=== PATIENT | female | born 1960 | race African-American/Black ===

== ENCOUNTER 2022-01-03 14:23 | Inpatient (IN) | payer MEDICARE ==
[~2022-01-03] VITALS: Ht 165.1 cm; Wt 79.4 kg
[2022-01-03 17:31] LABS: BASOPHILS % 0.1 % (0.0-2.0); EOSINOPHILS % 0.2 % (0.0-5.0); HEMATOCRIT. 32.7 % (36.0-48.0); HEMOGLOBIN. 10.6 g/dL (12.0-16.0); MEAN CORPUSCULAR HEMOGLOBIN 27.9 pg (28.0-32.0); MEAN CORPUSCULAR VOLUME 85.9 fL (81.0-99.0); MEAN PLATELET VOLUME 8.6 fl (7.4-10.4); MONOCYTES % 9.4 % (2.0-8.0); NEUTROPHILS % 80.3 % (40.0-76.0); PLATELET 215 x1000/uL (130-400); RED CELL DISTRIBUTION WIDTH 16.8 % (11.6-14.6)
[2022-01-03 17:34] LABS: CHLORIDE 98 mEq/L (98-107)
[2022-01-03 17:38] LABS: INR 1.1; PROTHROMBIN TIME 11.5 sec (9.6-11.0)
[2022-01-03] MEDS ORDERED: ACETAMINOPHEN 650MG SUPP PR PRN ×2 (23:45)
[2022-01-03] MEDS ORDERED: CLONIDINE 0.1MG TABLET PO PRN (23:45)
[2022-01-03] MEDS ORDERED: ONDANSETRON HCL 4MG/2ML INJ IV PRN (23:45)
[2022-01-03] MEDS ORDERED: IPRATROPIUM/ALBUTEROL 0.5-3(2.5)MG/3ML NEB HHN PRN (23:45)
[2022-01-03] MEDS ORDERED: DOCUSATE SODIUM 100MG CAPSULE PO PRN (23:45)
[2022-01-03] MEDS ORDERED: MORPHINE SULFATE 2 MG/ML CPJ (NOT FOR IM USE) IV PRN (23:45)
[2022-01-03] MEDS ORDERED: GUAIFENESIN 200MG/10ML SUGAR FREE UDC PO PRN (23:45)
[2022-01-03] MEDS ORDERED: ACETAMINOPHEN 325MG TABLET PO PRN (23:45)
[2022-01-03] MEDS ORDERED: MAGNESIUM/ALUMINUM HYDROXIDE/SIMETHICONE 30ML UDC PO PRN (23:45)
[2022-01-04] MEDS ORDERED: ASPIRIN 325MG TABLET PO ONE (00:15)
[2022-01-04 08:30] VITALS: BP 154/84
[2022-01-04] MEDS: ASPIRIN 81MG EC TABLET PO SCH (09:05)
[2022-01-04 09:44] LABS: BASOPHILS % 0.6 % (0.0-2.0); EOSINOPHILS % 3.3 % (0.0-5.0); HEMOGLOBIN. 9.6 g/dL (12.0-16.0); LYMPHOCYTES % 23.6 % (20.0-50.0); MEAN CORPUSCULAR HEMOGLOBIN 27.7 pg (28.0-32.0); MEAN CORPUSCULAR VOLUME 86.7 fL (81.0-99.0); MONOCYTES % 7.7 % (2.0-8.0); NEUTROPHILS % 64.8 % (40.0-76.0); PLATELET 209 x1000/uL (130-400); RED BLOOD CELL COUNT 3.46 mill/uL (4.2-5.4); RED CELL DISTRIBUTION WIDTH 16.9 % (11.6-14.6)
[2022-01-04 09:56] LABS: CHLORIDE 100 mEq/L (98-107)
[2022-01-04 10:09] LABS: CREATINE KINASE 297 IU/L (26-192); HDL CHOLESTEROL 92 mg/dL (40-59); LDL CHOLESTEROL 54 mg/dL (5-100)
[2022-01-04] MEDS ORDERED: SEVE800T8 MT (11:39)
[2022-01-04] MEDS ORDERED: AMLO5TAB88 PO (11:47)
[2022-01-04] MEDS ORDERED: B,C/1TAB PO (11:48)
[2022-01-04 12:00] VITALS: BP 156/59
[2022-01-04 12:34] VITALS: BP 154/84
[2022-01-04] MEDS ORDERED: *PATIENT'S OWN MEDICATION STORAGE XX SCH (12:45)
[2022-01-04 14:41] LABS: HEPATITIS B SURFACE ANTIGEN NEGATIVE
[2022-01-04 16:00] VITALS: BP 154/79
[2022-01-04 18:52] LABS: CLARITY URINE CLEAR (CLEAR); COLOR URINE YELLOW (YELLOW); KETONES URINE NEGATIVE (NEGATIVE); LEUKOCYTE ESTERASE URINE TRACE (NEGATIVE); NITRITE URINE NEGATIVE (NEGATIVE); OCCULT BLOOD URINE NEGATIVE (NEGATIVE); PH URINE >=9.0 (4.5-8.0); PROTEIN URINE 1+ (NEGATIVE); SPECIFIC GRAVITY URINE 1.008 (1.005-1.030); UROBILINOGEN URINE 0.2 E.U./dL (0.2-1.0)
[2022-01-04 19:03] LABS: *AMPHETAMINES SCREEN URINE NEGATIVE (NEGATIVE); *BARBITURATES SCREEN URINE NEGATIVE (NEGATIVE); *BENZODIAZEPINES SCREEN URINE NEGATIVE (NEGATIVE); *COCAINE SCREEN URINE NEGATIVE (NEGATIVE); CANNABINOID URINE SCREEN NEGATIVE (NEGATIVE); METHADONE URINE SCREEN NEGATIVE (NEGATIVE); OPIATES URINE SCREEN NEGATIVE (NEGATIVE); PHENCYCLIDINE URINE SCREEN NEGATIVE (NEGATIVE)
[2022-01-04 20:00] VITALS: BP_SYST 143; BP_SYST 150; BP_DIAS 69; BP_DIAS 80
[2022-01-05] VITALS (7 sets, daily range): BP systolic 111–155; BP diastolic 43–90
[2022-01-05 06:55] LABS: BASOPHILS % 0.5 % (0.0-2.0); EOSINOPHILS % 4.8 % (0.0-5.0); HEMATOCRIT. 28.3 % (36.0-48.0); HEMOGLOBIN. 9.2 g/dL (12.0-16.0); LYMPHOCYTES % 30.6 % (20.0-50.0); MEAN CORPUSCULAR HEMOGLOBIN 27.9 pg (28.0-32.0); MEAN CORPUSCULAR VOLUME 85.8 fL (81.0-99.0); MEAN PLATELET VOLUME 9.7 fl (7.4-10.4); MONOCYTES % 11.3 % (2.0-8.0); NEUTROPHILS % 52.8 % (40.0-76.0); PLATELET 206 x1000/uL (130-400); RED BLOOD CELL COUNT 3.29 mill/uL (4.2-5.4)
[2022-01-05] MEDS: AMLODIPINE 5MG TABLET PO SCH (10:41)
[2022-01-05] MEDS: SEVELAMER CARBONATE 800 MG TABLET PO SCH ×3 (10:42→18:07)
[2022-01-05] MEDS: ASPIRIN 81MG EC TABLET PO SCH (10:42)
[2022-01-05] MEDS ORDERED: ATOR80TA MT ×2 (12:32)
[2022-01-05 15:46] LABS: TOTAL IRON BINDING CAPACITY 223 ug/dL (250-450)
[2022-01-05 16:18] LABS: VITAMIN B12 SERUM 1084 pg/mL (211-911)
[2022-01-05] MEDS: ACETAMINOPHEN 325MG TABLET PO PRN (23:06)
[2022-01-06] VITALS (9 sets, daily range): BP systolic 120–155; BP diastolic 62–78
[2022-01-06 07:05] LABS: BASOPHILS % 0.3 % (0.0-2.0); EOSINOPHILS % 4.1 % (0.0-5.0); HEMOGLOBIN. 9.9 g/dL (12.0-16.0); LYMPHOCYTES % 26.3 % (20.0-50.0); MEAN CORPUSCULAR HEMOGLOBIN 28.2 pg (28.0-32.0); MEAN CORPUSCULAR VOLUME 85.7 fL (81.0-99.0); MEAN PLATELET VOLUME 9.3 fl (7.4-10.4); MONOCYTES % 11.2 % (2.0-8.0); NEUTROPHILS % 58.1 % (40.0-76.0); PLATELET 210 x1000/uL (130-400); RED CELL DISTRIBUTION WIDTH 17.1 % (11.6-14.6)
[2022-01-06] MEDS: AMLODIPINE 5MG TABLET PO SCH (09:00)
[2022-01-06] MEDS: SEVELAMER CARBONATE 800 MG TABLET PO SCH ×3 (09:00→18:56)
[2022-01-06] MEDS: ASPIRIN 81MG EC TABLET PO SCH (09:00)
[2022-01-06] MEDS ORDERED: VERAPAMIL HCL 2.5 MG/1 ML 2ML VIAL IV ONE (12:06)
[2022-01-06] MEDS ORDERED: DIPHENHYDRAMINE 50MG/ML VIAL ONE (12:06)
[2022-01-06] MEDS ORDERED: FENTANYL CITRATE/PF 50MCG/ML 2ML VIAL ONE (12:07)
[2022-01-06] MEDS ORDERED: MIDAZOLAM HCL 2 MG/2 ML VIAL ONE (12:07)
[2022-01-06] MEDS ORDERED: HEPARIN 1000 UNITS/ML 10ML ONE (12:07)
[2022-01-06] MEDS ORDERED: IODIXANOL 320MG/ML 100 ML BOTTLE IV ONE (12:07)
[2022-01-06] MEDS ORDERED: LIDOCAINE HCL 1% 10 MG/ML 10ML VIAL ONE (12:28)
[2022-01-06] MEDS ORDERED: SODIUM CHLORIDE 0.45% 500 ML IV SCH (13:30)
[2022-01-06] MEDS ORDERED: ATROPINE SULFATE 1MG/10ML SYR IV PRN (13:30)
[2022-01-06] MEDS: ACETAMINOPHEN 325MG TABLET PO PRN (23:38)
[2022-01-07] VITALS (9 sets, daily range): BP systolic 115–179; BP diastolic 54–76
[2022-01-07 06:18] LABS: BASOPHILS % 0.7 % (0.0-2.0); EOSINOPHILS % 3.1 % (0.0-5.0); HEMATOCRIT. 29.8 % (36.0-48.0); HEMOGLOBIN. 9.6 g/dL (12.0-16.0); LYMPHOCYTES % 19.2 % (20.0-50.0); MEAN CORPUSCULAR HEMOGLOBIN 27.9 pg (28.0-32.0); MEAN CORPUSCULAR VOLUME 86.1 fL (81.0-99.0); MEAN PLATELET VOLUME 9.2 fl (7.4-10.4); MONOCYTES % 12.2 % (2.0-8.0); NEUTROPHILS % 64.8 % (40.0-76.0); PLATELET 239 x1000/uL (130-400); RED BLOOD CELL COUNT 3.46 mill/uL (4.2-5.4)
[2022-01-07] MEDS: ASPIRIN 81MG EC TABLET PO SCH (08:52)
[2022-01-07] MEDS: AMLODIPINE 5MG TABLET PO SCH (08:52)
[2022-01-07] MEDS: SEVELAMER CARBONATE 800 MG TABLET PO SCH ×3 (08:52→19:29)
== END 2022-01-07 22:22 | disposition home or self-care (01) | DRG 73 ==
LOC: ER 14:37 → 6WST 21:48 → ENRESERV 01-04 02:46 → 5EST 01-06 14:20
PROVIDERS: ADMIT Specialist; ATTEND Family Medicine Adult Medicine
PROC: 4B02XTZ Measurement of Cardiac Defibrillator, External Approach (ICD-10-PCS; 2022-01-05)
PROC: 5A1D70Z Performance of Urinary Filtration, Intermittent, Less than 6 Hours Per Day (ICD-10-PCS; 2022-01-05)
PROC: 4A023N7 Measurement of Cardiac Sampling and Pressure, Left Heart, Percutaneous Approach (ICD-10-PCS; principal; 2022-01-06)
PROC: B211YZZ Fluoroscopy of Multiple Coronary Arteries using Other Contrast (ICD-10-PCS; 2022-01-06)
PROC: B218YZZ Fluoroscopy of Left Internal Mammary Bypass Graft using Other Contrast (ICD-10-PCS; 2022-01-06)
PROC: B212YZZ Fluoroscopy of Single Coronary Artery Bypass Graft using Other Contrast (ICD-10-PCS; 2022-01-06)
PROC: B41FYZZ Fluoroscopy of Right Lower Extremity Arteries using Other Contrast (ICD-10-PCS; 2022-01-06)
PROC: 5A1D70Z Performance of Urinary Filtration, Intermittent, Less than 6 Hours Per Day (ICD-10-PCS; 2022-01-07)
DX: G90.8 Other disorders of autonomic nervous system (principal); N18.6 End stage renal disease; E44.1 Mild protein-calorie malnutrition; I25.810 Atherosclerosis of coronary artery bypass graft(s) without angina pectoris; I13.2 Hypertensive heart and chronic kidney disease with heart failure and with stage 5 chronic kidney disease, or end stage renal disease; D64.9 Anemia, unspecified; E11.22 Type 2 diabetes mellitus with diabetic chronic kidney disease; I25.10 Atherosclerotic heart disease of native coronary artery without angina pectoris; Z20.822 Contact with and (suspected) exposure to COVID-19; R74.01 Elevation of levels of liver transaminase levels; I50.9 Heart failure, unspecified; Z95.1 Presence of aortocoronary bypass graft; Z95.810 Presence of automatic (implantable) cardiac defibrillator; Z99.2 Dependence on renal dialysis; Z79.899 Other long term (current) drug therapy; Z68.29 Body mass index [BMI] 29.0-29.9, adult
CPT/HCPCS: 36415; 71045; 80048; 80053; 80061; 80305; 81003; 82550; 82607; 83540; 83550; 83735; 84443; 84484; 85025; 86705; 86709; 86803; 87340; 87426; 93005; 93306; 93459; 93880; 97162; 97166; 99291; C1760; C1769; C1887; C1893; J1200; J1644; J2250; J3010; J3490; Q9967